=== PATIENT | female | born 1980 | race Two or more races ===

== ENCOUNTER 2016-11-10 18:45 | Emergency (ER) | payer SELFPAY ==
[~2016-11-10] VITALS: Ht 160 cm; Wt 55.0 kg
[2016-11-10] MEDS ORDERED: KETOROLAC 60MG/2ML VIAL IM ONE (20:00)
[2016-11-10 20:30] VITALS: BP 117/65
== END 2016-11-10 23:54 | disposition home or self-care (01) ==
LOC: ER 19:20
DX: S39.012A Strain of muscle, fascia and tendon of lower back, initial encounter (principal); V49.9XXA Car occupant (driver) (passenger) injured in unspecified traffic accident, initial encounter; Y93.89 Activity, other specified; Y92.89 Other specified places as the place of occurrence of the external cause; Y99.8 Other external cause status
CPT/HCPCS: 73562; 81025; 96372; 99284; J1885